=== PATIENT | female | born 1955 | race Caucasian/White ===

== ENCOUNTER 2017-08-03 08:36 | Day surgery (SDC) | payer BC ==
[2017-07-27 09:34] VITALS: BMI 27.3
[~2017-08-03 08:36] MED LIST: TROPICAMIDE 1% OPHTH SOLN 15 ML BOTTLE OD SCH
[2017-08-03] MEDS ORDERED: TROPICAMIDE 1% OPHTH SOLN 15 ML BOTTLE ONE (09:29)
[2017-08-03] MEDS ORDERED: CYCLOPENTOLATE HCL 1% OPHTH SOLN 2 ML BOTTLE ONE (09:29)
[2017-08-03] MEDS ORDERED: GENTAMICIN SULFATE 0.3% OPHTHALMIC (EYE DROPS) 5ML BOTTLE ONE (09:29)
[2017-08-03] MEDS ORDERED: PHENYLEPHRINE 2.5% OPHTH SOLN 15 ML BOTTLE ONE (09:29)
[2017-08-03] MEDS ORDERED: KETOROLAC TROMETHAMINE 0.5% 5 ML BOTTLE OPTHALMIC OD SCH (09:30)
[2017-08-03] MEDS ORDERED: CYCLOPENTOLATE HCL 1% OPHTH SOLN 2 ML BOTTLE OD SCH (09:30)
[2017-08-03] MEDS ORDERED: PHENYLEPHRINE 2.5% OPHTH SOLN 15 ML BOTTLE OD SCH (09:30)
[2017-08-03] MEDS ORDERED: GENTAMICIN SULFATE 0.3% OPHTHALMIC (EYE DROPS) 5ML BOTTLE OD SCH (09:30)
[2017-08-03] MEDS: TROPICAMIDE 1% OPHTH SOLN 15 ML BOTTLE OD SCH ×5 (09:40→10:00)
[2017-08-03] MEDS: KETOROLAC TROMETHAMINE 0.5% 5 ML BOTTLE OPTHALMIC OD SCH ×5 (09:40→10:00)
[2017-08-03] MEDS: GENTAMICIN SULFATE 0.3% OPHTHALMIC (EYE DROPS) 5ML BOTTLE OD SCH ×5 (09:40→10:00)
[2017-08-03] MEDS: PHENYLEPHRINE 2.5% OPHTH SOLN 15 ML BOTTLE OD SCH ×5 (09:40→10:00)
[2017-08-03] MEDS: CYCLOPENTOLATE HCL 1% OPHTH SOLN 2 ML BOTTLE OD SCH ×4 (09:45→10:00)
[2017-08-03] MEDS ORDERED: EPI-SHUGARCAINE (EPINEPHRINE 0.025% & LIDOCAINE-PF 0.75%) 4ML ONE (10:38)
[2017-08-03] MEDS ORDERED: TETRACAINE 0.5% OPHTH SOLN 2 ML BOTTLE ONE (10:38)
[2017-08-03] MEDS ORDERED: POVIDONE-IODINE 5% OPHTHALMIC PREP 30 ML SOLUTION ONE (10:39)
[2017-08-03] MEDS ORDERED: ACETYLCHOLINE 1:100 INTRA-OCUL 20 MG/2 ML KIT ONE (10:39)
[2017-08-03] MEDS ORDERED: MIDAZOLAM HCL 2 MG/2 ML SINGLE DOSE VIAL ONE (11:01)
[2017-08-03] MEDS ORDERED: TRYPAN BLUE 0.5 ML DISP.SYRIN ONE (11:09)
[2017-08-03] MEDS ORDERED: ACETAMINOPHEN 325 MG TABLET (FP) PO PRN (11:57)
[2017-08-03 12:08] VITALS: TEMP 98.9
[2017-08-03 12:27] VITALS: BP 143/83; PULSE 81
--- NOTE | 2017-08-03 13:20 | OP ---
DATE OF OPERATION: 08/03/2017 PREOPERATIVE DIAGNOSIS: Cataract, right eye. POSTOPERATIVE DIAGNOSIS: Cataract, right eye. PROCEDURE: Cataract extraction via phacoemulsification with insertion of posterior chamber lens implant, right eye, multifocal intraocular lens. SURGEON: Srikanth Phillips MD HEAT SET OPERATOR: Manuela Silva MD ANESTHESIA: Topical with sedation. ESTIMATED BLOOD LOSS: Less than 1 mL. COMPLICATIONS: None. SPECIMENS: None. DESCRIPTION OF PROCEDURE: The patient was identified in the holding area. After all risks, benefits, and alternatives were explained to the patient, informed consent was obtained. Her right eye was marked with a marking pen. The patient then entered the operating room on an eye stretcher. After a formal timeout was performed, topical tetracaine eye drops were instilled onto the right eye. The right eye was then prepped and draped in usual sterile fashion. An eyelid speculum was placed beneath the eyelids of the right eye. A superotemporal paracentesis incision was created using a 15-degree blade. Intracameral preservative-free lidocaine and preservative-free epinephrine were injected into the anterior chamber. Viscoelastic was injected into the anterior chamber. Then, a 2.4-mm keratome blade was then used to make an inferotemporal incision. A 360-degree, continuous curvilinear capsulorrhexis was then created using bent cystotome and Utrata forceps. Hydrodissection was performed using balanced saline solution on a cannula. Phacoemulsification was introduced to disassemble and remove the nucleus in its entirety. Irrigation/aspiration was used to remove any remaining cortical material from the eye. The capsular bag was reformed using viscoelastic. An Abundio model SV25T0 power 19.5 diopters with a 2.5 add, serial number [id number] was inspected and found to be defect free and injected into the capsular bag. Irrigation/aspiration was used to remove any remaining viscoelastic from the eye, paying attention to make sure all viscoelastic was cleared underneath the optic of the intraocular lens. The lens was then centered into position. BSS was then administered to reform the anterior chamber. Intracameral Miochol and Miostat were then administered, and the pupil came down and was round. The lens was made sure to be centered with the center ring perfectly centered using the microscope light as well as using the center of the pupil. All wounds were hydrated with balanced saline solution and noted to be watertight. Upon inspection, the lens was perfectly centered, the anterior chamber was deep, there was a red reflex present, and the eye had an adequate pressure. Topical antibiotic eye drops and ointment were then administered to the right eye. The eyelid speculum was removed from the right eye. The right eye was shielded. The patient tolerated the procedure well, left the operating room in stable condition to follow up in the eye clinic tomorrow morning at 9:00. SRIKANTH PHILLIPS M.D. [id number]
== END 2017-08-03 12:30 | disposition home or self-care (01) ==
LOC: FASU 08:36
PROVIDERS: ATTEND Ophthalmology
PROC: 08RJ3JZ Replacement of Right Lens with Synthetic Substitute, Percutaneous Approach (ICD-10-PCS; principal; 2017-08-03 11:18)
DX: H26.9 Unspecified cataract (principal)
CPT/HCPCS: 82962

== ENCOUNTER 2021-04-29 09:00 | Day surgery (SDC) | payer BC ==
[2021-04-28 11:04] VITALS: BMI 27.6
[~2021-04-29 09:00] MED LIST changes: +CYCLOPENTOLATE HCL 1% OPHTH SOLN 2 ML BOTTLE OS SCH; +KETOROLAC TROMETHAMINE 0.5% EYE DROP 1 DROP DROPS OS SCH; +OFLOXACIN 0.3% OPHTHALMIC SOLUTION 5 ML BOTTLE OS SCH; +PHENYLEPHRINE 2.5% OPHTH SOLN 15 ML BOTTLE OS SCH; -TROPICAMIDE 1% OPHTH SOLN 15 ML BOTTLE OD SCH; +TROPICAMIDE 1% OPHTH SOLN 15 ML BOTTLE OS SCH
[2021-04-29] MEDS: KETOROLAC TROMETHAMINE 0.5% EYE DROP 1 DROP DROPS ONE ×3 (09:45→09:57)
[2021-04-29] MEDS: TROPICAMIDE 1% OPHTH SOLN 15 ML BOTTLE ONE ×3 (09:45→09:57)
[2021-04-29] MEDS: OFLOXACIN 0.3% OPHTHALMIC SOLUTION 5 ML BOTTLE ONE ×3 (09:45→09:57)
[2021-04-29] MEDS: CYCLOPENTOLATE HCL 1% OPHTH SOLN 2 ML BOTTLE ONE ×3 (09:45→09:57)
[2021-04-29] MEDS: PHENYLEPHRINE 2.5% OPHTH SOLN 15 ML BOTTLE ONE ×3 (09:45→09:57)
[2021-04-29] MEDS ORDERED: PHENYLEPHRINE/KETOROLAC 4 ML VIAL IO ONE (11:17)
[2021-04-29] MEDS ORDERED: MIDAZOLAM HCL 2 MG/2 ML SINGLE DOSE VIAL ONE (11:20)
[2021-04-29] MEDS ORDERED: EPI-SHUGARCAINE (EPINEPHRINE 0.025% & LIDOCAINE-PF 0.75%) 4ML ONE (11:55)
[2021-04-29] MEDS ORDERED: BETAXOLOL HCL 0.25% OPHTHALMIC 10 ML DROPSBTL ONE (11:55)
[2021-04-29] MEDS ORDERED: TETRACAINE 0.5% OPHTH SOLN 2 ML BOTTLE ONE (11:55)
[2021-04-29] MEDS ORDERED: BACITRACIN/POLYMYXIN OPH OINT 3.5 GM TUBE ONE (11:55)
[2021-04-29] MEDS ORDERED: POVIDONE-IODINE 5% OPHTHALMIC PREP 30 ML SOLUTION ONE (11:56)
[2021-04-29] MEDS ORDERED: NEO/POLYMYX B SULF/DEXAMETH OPHTHALMIC 5ML BOTTLE ONE (11:56)
[2021-04-29] MEDS ORDERED: ACETAMINOPHEN 325 MG TABLET (FP) PO PRN (11:59)
[2021-04-29 12:40] VITALS: BP 162/94; PULSE 92; TEMP 98.2
== END 2021-04-29 13:30 | disposition home or self-care (01) ==
LOC: FASU 09:00
PROVIDERS: ATTEND Ophthalmology
PROC: 08RK3JZ Replacement of Left Lens with Synthetic Substitute, Percutaneous Approach (ICD-10-PCS; principal; 2021-04-29 11:30)
DX: H26.9 Unspecified cataract (principal)
CPT/HCPCS: 82962; J1097

== ENCOUNTER 2021-06-18 21:09 | Emergency (ER) | payer BC ==
[2021-06-18 21:35] VITALS: PULSE 98; TEMP 99; BMI 26.5
[2021-06-18] MEDS ORDERED: MECLIZINE HCL 25 MG TABLET (FP) PO ONE (21:41)
[2021-06-18] MEDS ORDERED: METOCLOPRAMIDE HCL INJECTION 10 MG/2 ML VIAL IVPUSH ONE (21:41)
[2021-06-18] MEDS ORDERED: METOCLOPRAMIDE HCL INJECTION 10 MG/2 ML VIAL ONE (21:46)
[2021-06-18] MEDS ORDERED: LABETALOL HCL 5 MG/1 ML (100MG/20 ML VIAL) IVPUSH ONE (21:46)
[2021-06-18] MEDS ORDERED: MECLIZINE HCL 25 MG TABLET (FP) ONE (21:46)
[2021-06-18] MEDS ORDERED: LABETALOL HCL 5 MG/1 ML (100MG/20 ML VIAL) ONE (21:48)
[2021-06-18 22:09] LABS: ALBUMIN 4.3 g/dl (3.4-5.0); BILIRUBIN,TOTAL 0.7 mg/dl (0.2-1); CALCIUM 9.4 mg/dl (8.5-10); CREATININE 0.6 mg/dl (0.55-1.3); TOT PROT 6.8 g/dl (6.4-8.2)
[2021-06-18 23:15] LABS: BASO % 0.6 % (0-2.0); EOS % 2.8 % (0-4.5); HEMATOCRIT 39.5 % (32.4-45.2); HEMOGLOBIN 13.4 GM/dL (10.7-15.3); LYMPH % 19.8 % (8-40); MCH 29.2 pg (25.7-33.7); MCHC 34.1 g/dl (32.0-36.0); MEAN CELL VOLUME 85.7 fl (80-96); MEAN PLT VOLUME 8.9 fl (7.5-11.1); MONO % 7.3 % (3.8-10.2); NEUT % 69.5 % (42.8-82.8); PLATELET COUNT 252 10^3/uL (134-434); RDW 13.9 % (11.6-15.6); WHITE BLOOD COUNT 8.1 K/mm3 (4.0-10.0)
[2021-06-18 23:44] VITALS: BP 169/93
== END 2021-06-19 01:42 | disposition home or self-care (01) ==
LOC: FER 21:09
PROC: 3E033NZ Introduction of Analgesics, Hypnotics, Sedatives into Peripheral Vein, Percutaneous Approach (ICD-10-PCS; principal; 2021-06-18)
PROC: 3E033GC Introduction of Other Therapeutic Substance into Peripheral Vein, Percutaneous Approach (ICD-10-PCS; 2021-06-18)
DX: R42 Dizziness and giddiness (principal); I10 Essential (primary) hypertension
CPT/HCPCS: 36415; 70450-TC; 71045-TC-FY; 80053; 84484; 85025; 93005; 99285-25

== ENCOUNTER 2022-03-01 15:08 | Emergency (ER) | payer BC ==
[2022-03-01 15:26] VITALS: BP 159/83; PULSE 98; RESP 18; TEMP 98; BMI 26.5
== END 2022-03-01 16:35 | disposition home or self-care (01) ==
LOC: FER 15:08
DX: R05.1 Acute cough (principal)
CPT/HCPCS: 0241U-QW; 71046-TC-FY; 99284-25